=== PATIENT | female | born 1970 | race Caucasian/White ===

== ENCOUNTER 2020-09-25 16:15 | Outpatient (CLI) | payer OTHER, SELFPAY ==
--- NOTE | ~2020-09-25 | XR_ITS ---
EXAMINATION: XR tibia fibula LT 2V, XR foot LT min 3V, XR ankle LT min 3V DATE: 09/25/2020 16:54 INDICATION: 5 days of left lower leg, foot and ankle pain. TECHNIQUE: 1. Anteroposterior and lateral views of the left tibia and fibula were obtained. 2. Anteroposterior, mortise, oblique and lateral views of the left ankle were obtained. 3. Dorsal plantar, lateral and 2 oblique views of the left foot were obtained. COMPARISON: None. FINDINGS: Alignment is normal at the left lower leg, foot and ankle. No fracture. Joint spaces are normal with no evident osteophytosis or erosions. No periosteal reaction or suspicious lytic or blastic bone lesi ons. Focal soft tissue swelling lateral to the head of the left fifth metatarsal, potentially a bunio jian. Soft tissues are otherwise unremarkable with no left ankle joint effusion. IMPRESSION: 1. No osseous abnormality at the left lower leg, foot or ankle. Reviewed, dictated and finalized at location A. ICAL STUDIES SPECIALIST IMPRESSION: 1. No osseous abnormality at the left lower leg, foot or ankle. IMPRESSION: 1. No osseous abnormality at the left lower leg, foot or ankle.
== END 2020-09-25 16:16 | disposition home or self-care (01) ==
PROVIDERS: PCP Family Medicine; Visit Provider Family Medicine
DX: M79.605 Pain in left leg (principal)
CPT/HCPCS: 73590; 73610; 73630

== ENCOUNTER 2021-02-19 09:57 | Emergency (ER) | payer OTHER, SELFPAY ==
--- NOTE | ~2021-02-19 | XR_ITS ---
XR shoulder RT min 2V, XR humerus RT 02/19/2021 11:57 Indication: Right arm and shoulder pain with limited range of motion Procedure: 4 views right shoulder and 2 views right humerus Comparison: No prior studies for comparison. Findings: No fracture, subluxation or dislocation. There is anatomic alignment. No soft tissue abnorm ality. No foreign bodies. There is mild osteoarthritis of the acromioclavicular joint with inferior o steophyte formation. Impression: 1: Mild osteoarthritis of the acromioclavicular joint. Reviewed, dictated and finalized at location B. Impression: 1: Mild osteoarthritis of the acromioclavicular joint. Impression: 1: Mild osteoarthritis of the acromioclavicular joint.
[2021-02-19 10:43] VITALS: BP 167/78; PULSE 92; RESP 12; TEMP 36.7; O2SAT 100
--- NOTE | 2021-02-19 11:47 | ED.UPPEXIN ---
HPI - Extremity Injury (Upper) General Chief Complaint: Extremity Injury, Upper Stated Complaint: right arm pain Time Seen by Provider: 02/19/21 11:06 Source: patient Mode of arrival: ambulatory Limitations: no limitations History of Present Illness HPI narrative: This is a 50-year-old female that presents to the emergency department for right shoulder pain x3 days. No known certain injury or trauma. Reports she has been lifting weights in the gym again recently. Pain is on the lateral aspect of the shoulder. It is hard for her to lift her arm due to pain. She took Lorton last night with some relief of the pain. Denies fever, erythema, edema, or numbness. Related Data Home Medications Medication Instructions Recorded Confirmed rosuvastatin mg 02/19/21 Allergies Allergy/AdvReac Type Severity Reaction Status Date / Time BANDAID AdvReac Unknown Rash Uncoded 02/19/21 11:07 Review of Systems Review of Systems: Narrative: CONSTITUTIONAL: Denies fever SKIN: Denies rash MUSCULOSKELETAL: Reports joint pain, and myalgia. NEUROLOGIC: Denies numbness, or weakness. All systems reviewed & are unremarkable except as noted in HPI and below PMFSH Past Medical History Medical History (Updated 02/19/21 @ 13:13 by Amada Piña PA-C) History of hyperlipidemia Social History Social History (Updated 02/19/21 @ 11:50 by Amada Piña PA-C) Substance use: never Exam Narrative: Exam Narrative: GENERAL: Well-appearing, well-nourished, and in no acute distress. HEAD: Normocephalic, atraumatic. EYES: EOMI. CHEST: Clear to auscultation. No respiratory distress. No wheezes rales or rhonchi HEART: Regular rate and rhythm. No murmur heard. Normal peripheral pulses. EXTREMITIES: Decreased active ROM in the right shoulder above 90 degrees. No edema, erythema or warmth. Normal DP pulses. Normal sensation. Pain with Morse Jr test SKIN: Warm, dry, no rash. NEURO: No focal deficits. Alert and oriented x3. PSYCH: Normal mood and affect Course Vital Signs Vital signs: Vital Signs Temperature 98.1 F 02/19/21 10:43 Pulse Rate 92 02/19/21 10:43 Respiratory Rate 12 02/19/21 10:43 Blood Pressure 167/78 H 02/19/21 10:43 Pulse Oximetry 100 02/19/21 10:43 Temperature 98.1 F 02/19/21 10:43 Pulse Rate 92 02/19/21 10:43 Respiratory Rate 12 02/19/21 10:43 Blood Pressure 167/78 H 02/19/21 10:43 Pulse Oximetry 100 02/19/21 10:43 MDM - Extremity Injury (Upper) MDM Narrative Medical decision making narrative: Patient presents the emergency department for right shoulder pain x3 days. No known injury or trauma. She has neurovascularly intact. Right shoulder and humerus x-rays are without acute osseous abnormalities. Shows mild osteoarthritis of the AC joint. Patient was updated on case findings. Instructed to rest, ice and take [id number] pain medication as needed. She is to follow-up with orthopedics. She was given warnings to return to the ER Imaging Data Radiologist's impression: ITS Impressions Humerus X-Ray 02/19/21 11:58 Impression: 1: Mild osteoarthritis of the acromioclavicular joint. Shoulder X-Ray 02/19/21 11:58 Impression: 1: Mild osteoarthritis of the acromioclavicular joint. Critical Care Time Critical Care Time Critical Care Time: No Discharge Plan Discharge Clinical Impression: Acute pain of right shoulder Patient Disposition: Home, Self-Care Condition: Stable Instructions: Shoulder Pain (ED) Additional Instructions: Return to the emergency department if you experience fever, redness and swelling of your arm, numbness, or any other symptoms that are concerning to you Rest. Ice to the area. Tylenol or anti-inflammatories as needed for pain. You may wear sling for comfort, do be sure to come out of the sling and do range of motion exercises so you did not stiff Follow-up with orthopedics Prescriptions: No Action
[2021-02-19] MEDS: IBUPROFEN 600 MG TABLET PO (12:03)
[2021-02-19 13:29] VITALS: BP 117/75; PULSE 67; RESP 16; O2SAT 99
== END 2021-02-19 13:32 | disposition home or self-care (01) ==
PROVIDERS: Emergency Provider Emergency Medicine; PCP Family Medicine
DX: M25.511 Pain in right shoulder (principal); E78.5 Hyperlipidemia, unspecified; M19.011 Primary osteoarthritis, right shoulder
CPT/HCPCS: 73030; 73060; 99283; A9270

== ENCOUNTER 2021-03-11 15:24 | Observation (INO) | payer OTHER, SELFPAY ==
[2021-03-11] VITALS (7 sets, daily range): BP systolic 96–141; BP diastolic 72–107; PULSE 80–110; RESP 16–20; TEMP 36.6–37.3; O2SAT 96–99; BMI 24.0
--- NOTE | 2021-03-11 | ECG_ITS ---
Measurements Intervals [place] Rate: 93 P: 65 OR: 146 QRS: -32 QRSD: 86 T: 8 QT: 387 QTc: 482 Interpretive Statements SINUS RHYTHM LEFT AXIS DEVIATION BORDERLINE ST-T WAVE ABNORMALITY- ANT/INF LEADS BORDERLINE ECG Electronically Signed On 03-11-2021 16:03:45 CDT by Brant Robertson D.O.
--- NOTE | ~2021-03-11 | CT_ITS ---
EXAMINATION: CT abdomen pelvis w con EXAM DATE: 03/11/2021 17:16 INDICATION: Upper abdominal pain, hematemesis. Upper abdominal pain, hematemesis. Epigastric pain. Na usea and vomiting. TECHNIQUE: Spiral CT of the abdomen and pelvis was performed following intravenous injection of 100 m L Omnipaque 350. Axial, coronal and sagittal images of the abdomen and pelvis were reviewed. The do se-length product (DLP) for this examination was 371.70 mGy-cm. The exposure was tailored according to patient size (auto mA exposure control), and iterative reconstruction (ASIR) was used as additiona l dose reduction technique. There is no prior study for comparison. FINDINGS: The liver, spleen, adrenal glands and pancreas are unremarkable. Gallbladder is unremarkab le. No biliary obstruction. Portal and splenic veins are patent. Kidneys enhance symmetrically. T here is no hydronephrosis. The uterus is not identified and has likely been surgically resected. T he bladder is unremarkable. There is no retroperitoneal or pelvic lymphadenopathy. The 2nd and 3rd portion of the duodenum appears to have thickened low density wall, most likely edema (axial images 70-90). Could be peptic ulcer disease but no discrete ulcerations identified. The appe ndix is normal. There is expected amount of colonic stool. No free intraperitoneal gas. The he art is normal in size. There are no pericardial or pleural effusions. The lung bases are unremarkab le. The bones are unremarkable. IMPRESSION: Edematous appearing duodenum, could be peptic ulcer disease. Clinical correlation. Reviewed, dictated and finalized at location A. IMPRESSION: Edematous appearing duodenum, could be peptic ulcer disease. Clinic al correlation.
--- NOTE | 2021-03-11 15:34 | ED.ABDPAIN ---
HPI - Abdominal Pain General Chief Complaint: Abdominal Pain Stated Complaint: ABD PAIN Source: patient and RN notes reviewed Mode of arrival: EMS Limitations: no limitations History of Present Illness HPI narrative: This is a 50 year old female who presents for evaluation of nausea and vomiting. She states approximately 1 hour ago she developed sudden onset nausea and vomiting. She reports she felt well before this sudden emesis. She had 2 more episodes of emesis. She reports her second episode was bilious and her third episode of emesis was bright red blood. She developed epigastric pain after her episodes of vomiting, but her pain has now subsided. She denies diarrhea or melena. SHe states 2 months ago she had vomiting and diarrhea that last for 1 week but she thought it was due to stomach bug . She also reports 1 week ago she had an episode of emesis after eating and drinking but she felt fine immediately after. She denies history ulcer. She also denies frequent alcohol or NSAID use. Related Data Home Medications Medication Instructions Recorded Confirmed No Home Medications 03/11/21 Allergies Allergy/AdvReac Type Severity Reaction Status Date / Time No Known Allergies Allergy Verified 03/11/21 15:15 Review of Systems Review of Systems: All systems reviewed & are unremarkable except as noted in HPI and below PMFSH Past Medical History Medical History (Updated 03/11/21 @ 20:50 by Kelsey Marinelli MD) Fever High cholesterol History of hyperlipidemia Right rotator cuff tear Vision changes Vomiting Surgical History Surgical History (Updated 03/11/21 @ 15:35 by Kelsey Marinelli MD) History of partial hysterectomy Family History Family History (Updated 02/21/21 @ 11:24 by Marta Padilla RT(R)) Other High cholesterol Social History Social History (Updated 02/21/21 @ 11:24 by Marta Padilla RT(R)) Smoking status: Never smoker Second hand tobacco smoke exposure: No Alcohol intake: current Drinks per week: 3 Substance use: never Substance use type: does not use Gender identity (if verbalized by the patient): Female Spiritual care concerns: No Exam Const: General: no acute distress and alert Orientation/consciousness: patient oriented x3 Eyes: EOM: EOMs intact bilaterally Chest: Chest palpation & inspection: normal inspection of the chest Resp: Effort & Inspection: normal respiratory effort and no retractions Auscultation: clear to auscultation bilaterally Cardio: Rate: regular rate Rhythm: regular rhythm Heart sounds: no murmurs GI: GI Palp: Yes Soft to palpation, No Tenderness to palpation present (GI) and No Guarding due to palpation present (GI) Auscultation: normal bowel sounds Rectal Exam: normal sphincter tone Other: guaic negative Skin: General skin exam: normal color Rashes: no rashes Neuro: General: patient oriented x3, moves all extremities and CN's II-XI intact bilaterally Psych: Mental Status: mental status grossly normal Affect: normal affect Course Reevaluation(s) Reevaluation #1: I discussed with patient CT report showing duodenum abnormality and possible PUD. She is guaic negative. She reports she feels better. Will order serial H/H and she has been given protonix. Date: 03/11/21 Time: 17:30 Consultations Consultation #1: I discussed case with Tere hermosillo about case and she accepts patient to hospitalist service for evaluation of Upper GI bleeding, PUD Date: 03/11/21 Time: 17:54 Consultation #2: I spoke with Dr. Ng who agrees to consult. REquest patient consent for EGD tomorrow. Date: 03/11/21 Time: 18:05 Vital Signs Vital signs: Vital Signs Temperature 99.2 F 03/11/21 15:05 Pulse Rate 110 H 03/11/21 15:05 Respiratory Rate 20 03/11/21 15:05 Blood Pressure 96/72 L 03/11/21 15:05 Pulse Oximetry 98 03/11/21 15:05 Temperature 99.2 F 03/11/21 15:05 Pulse Rate 81 03/11
[2021-03-11 15:43] LABS: Basophils Absolute Auto 0.1 K/mm3 (0.0-0.1); Basophils Percent Auto 0.4 % (0.2-1.2); Eosinophils Absolute Auto 0.1 K/mm3 (0-0.3); Eosinophils Percent Auto 0.4 % (0-4.4); Hematocrit 43.6 % (37.0-47.0); Hemoglobin 14.6 g/dL (12.0-15.0); Immature Granulocyte Absolute 0.14 K/mm3 (0.00-0.031); Immature Granulocyte Percent A 0.6 % (0-0.5); Immature Platelet Fraction Pct 8.7 % (0.9-11.2); Lymphocytes Absolute Auto 1.65 K/mm3 (0.9-3.2); Lymphocytes Percent Auto 7.3 % (18.3-44.2); Mean Corpuscular HGB Conc 33.5 g/dl (32-36); Mean Corpuscular Hemoglobin 31.5 pg (26-34); Mean Platelet Volume 12.5 fl (7.4-10.4); Monocytes Absolute Auto 0.9 K/mm3 (0.1-0.6); Monocytes Percent Auto 3.8 % (2.6-8.5); Neutrophils Absolute Auto 19.7 K/mm3 (1.3-6.7); Neutrophils Percent Auto 87.5 % (45.5-73.1); Platelet Count Result 189 k/mm3 (150-375); Red Blood Count 4.64 M/mm3 (4.2-5.4); Red Cell Distribution Width 12.7 % (11.5-14.5); White Blood Count 22.6 K/mm3 (4.5-10.0)
[2021-03-11] MEDS: LACTATED RINGERS 1,000 ML 999 ML IV CONT (16:00)
[2021-03-11] MEDS: PANTOPRAZOLE SODIUM IV 40 MG VIAL IV PUSH ×2 (16:01→20:45)
[2021-03-11 16:38] LABS: Partial Thromboplastin Time 24.9 SECONDS (22.3-36.8); Prothrombin Time 13.4 Seconds (11.1-14.7)
[2021-03-11 16:41] LABS: Add Urine Microscopic? YES; Appearance Urine Clear (Clear); Bacteria Urine Trace /hpf; Bilirubin Urine Negative (Negative); Blood Urine 1+ (Negative); Color Urine Yellow (Yellow); Glucose Urine UA Negative (Negative); Ketones Urine Trace mg/dL (Negative); Leukocyte Esterase Ur Negative LEU/UL (Negative); Mucus Urine Rare /lpf; Nitrate Urine Negative (Negative); Protein Urine 1+ mg/dL (Negative); Specific Grav Ur 1.017 (1.001-1.035); Urobilinogen Urine Negative mg/dL (<2.0); WBC Urine 0-3 /hpf
[2021-03-11 16:43] LABS: Lactic Acid Reflex 1.5 mmol/L (0.7-2.1)
[2021-03-11 16:48] LABS: Alanine Aminotransferase 25 U/L (4-35); Albumin Level 4.9 g/dL (3.5-5.1); Alkaline Phosphatase 71 U/L (38-126); Anion Gap 12 mmol/L (8-16); Aspartate Amino Transferase 32 U/L (14-36); Bilirubin,Total 0.4 mg/dL (0.2-1.3); Blood Urea Nitrogen 15 mg/dL (7-17); Calcium 9.7 mg/dL (8.4-10.2); Carbon Dioxide 25 mmol/L (22-30); Chloride 103 mmol/L (98-107); Estimated CRCL calculation 79 ml/min; Estimated Glomerular Filt Rate > 60; Glucose 92 mg/dL (65-105); Lipase 98 U/L (23-300); Potassium 3.4 mmol/L (3.4-5.0); Sodium 140 mmol/L (137-145)
--- NOTE | 2021-03-11 20:14 | ADMGEN ---
This patient, Maye Lyn, was admitted to [facility] Surg Room 301-01. Patient/family oriented to hospital policies and general routines including ID bracelet, bed and alarms, visiting hours, pain management, procedures, bathroom and other care routines, personal items, smoking policy, room service/diet, and visiting hours. Information on how to activate the Rapid Response Team has been discussed. Patient/Family are encouraged to report perceived risks to care and to ask questions if they do not understand what they are told or what they should do.
[2021-03-11 20:27] LABS: Hematocrit 43.4 % (37.0-47.0); Hemoglobin 14.6 g/dL (12.0-15.0)
[2021-03-11] MEDS: SODIUM CHLORIDE 0.9% IV 1,000 ML 125 ML IV CONT (20:40)
[2021-03-12] VITALS (7 sets, daily range): BP systolic 110–129; BP diastolic 65–86; PULSE 50–78; RESP 12–22; TEMP 36.1–36.9; O2SAT 99–100
[2021-03-12 01:53] LABS: Hemoglobin 12.6 g/dL (12.0-15.0)
[2021-03-12] MEDS: SODIUM CHLORIDE 0.9% IV 1,000 ML 125 ML IV CONT (04:46)
[2021-03-12 06:31] LABS: Hematocrit 38.9 % (37.0-47.0); Hemoglobin 12.8 g/dL (12.0-15.0)
--- NOTE | 2021-03-12 06:42 | PM.IMHP ---
H&P: HPI History of Present Illness Date/Time: 03/12/21 06:42 Chief Complaint: Epigastric pain, nausea and vomiting Narrative: 50-year-old female with a past medical history of familial hyperlipidemia who presented to the ER due to epigastric pain nausea and vomiting. The patient reports that about 2 months ago she had nausea and vomiting for several days. It was then followed by several days of diarrhea. Her total of symptoms lasted about a week and she thought it was due to a stomach bug as her children became ill about custodial through her ill process. She then had a recurrence of symptoms about 1 week ago where she had an episode of emesis after eating and drinking. She reported that she immediately felt better after the emesis. She denied any epigastric pain at that time. Her symptoms seemed self limited. However approximately 1 hour prior to presentation on the the patient developed sudden onset of nausea and vomiting. She had approximately 4 episodes of emesis with her last emesis containing gross blood. She reported that it was less than a quarter of a cup of blood. It seemed to be an isolated amount of blood but was not a clot. She reports that she felt well before all sudden onset of emesis. her emesis initially consisted of gastric contents. Her following couple of emesis were yellow to light green In color prior to hematemesis. She had some severe epigastric abdominal pain at the time of her last episode of emesis. Her abdomen still feels slightly tender in the epigastric region. She reported that her emesis today was after eating some David crackers. Her emesis was preceded by a sensation of nausea and she thought the eating some g carb occurs would help her symptoms. She denies any recent NSAID use. She has not had any recent alcohol use. She denies any hematochezia or melena. She has never had EGD or colonoscopy. She denies any known history of ulcer disease or GERD. she reports a sensation of fullness in her right ear non it improved with [id number] Flonase. she has not had any significant hearing loss. A few weeks ago after her 1st onset of symptoms she thought that maybe she was feeling ill because she was out of shape. She started working out. She subsequently developed some right shoulder pain radiating down into her right upper arm. She is evaluated by Dr. Turner On 02/21/2021who thought the patient may have a rotator cuff tear and referred her for an MRI. She has not followed up to have the MRI performed. the patient felt her symptoms may instead be due to statin use so she stopped her statin therapy. A few days later her shoulder symptoms improved. Her shoulder does not feel back to normal. Review of Systems Review of Systems: Narrative: 12 systems were reviewed with pertinent positives and negatives per HPI. Except as documented in the HPI, all other systems were reviewed and are negative. [facility] Past Medical History Medical History (Updated 03/12/21 @ 09:07 by Enedina Finley DO) History of hyperlipidemia Right rotator cuff tear Vision changes Surgical History Surgical History (Updated 03/12/21 @ 09:00 by Enedina Finley DO) History of partial hysterectomy (~2015) Hysterectomy without oophorectomy due to dysfunctional uterine bleeding. 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 She reports that her 3rd oldest daughter is going to move out this week. She is a lifelong nonsmoker. She drinks A few alcoholic beverage a week. She denies any tobacco use or illicit substance use. She is a homemaker. Primary care physician: Dr. Kristen Mejia Code status: Aby
[2021-03-12 07:06] LABS: Hematocrit 38.7 % (37.0-47.0); Hemoglobin 12.9 g/dL (12.0-15.0); Mean Corpuscular HGB Conc 33.3 g/dl (32-36); Mean Corpuscular Hemoglobin 31.9 pg (26-34); Mean Corpuscular Volume 95.6 fl (80-100); Mean Platelet Volume 12.1 fl (7.4-10.4); Platelet Count Result 168 k/mm3 (150-375); Red Blood Count 4.05 M/mm3 (4.2-5.4); Red Cell Distribution Width 12.9 % (11.5-14.5); White Blood Count 8.7 K/mm3 (4.5-10.0)
[2021-03-12 07:18] LABS: Anion Gap 7 mmol/L (8-16); Blood Urea Nitrogen 12 mg/dL (7-17); Calcium 8.3 mg/dL (8.4-10.2); Carbon Dioxide 21 mmol/L (22-30); Chloride 110 mmol/L (98-107); Estimated CRCL calculation 107 ml/min; Estimated Glomerular Filt Rate > 60; Glucose 88 mg/dL (65-105); Potassium 3.5 mmol/L (3.4-5.0); Sodium 138 mmol/L (137-145)
[2021-03-12] MEDS: PANTOPRAZOLE SODIUM IV 40 MG VIAL IV PUSH (09:24)
[2021-03-12] MEDS: LACTATED RINGERS 1,000 ML 150 ML IV CONT (11:11)
--- NOTE | 2021-03-12 11:25 | WPDGICN ---
Assessment and Plan Assessment and plan (1) Hematemesis: Qualifiers: Nausea presence: with nausea Qualified Code(s): K92.0 - Hematemesis Code(s): K92.0 - Hematemesis Status: Acute Assessment and Plan: Patient has had vomiting episode along with subsequent hematemesis. History is very suggestive of Lara-Mckeon tear. CT scan suggest possibility of peptic ulcer disease and duodenal ulcer. Hemoglobin has remained essentially normal. Plan is for PPI therapy. An EGD will be performed to assess for source of bleeding and anticipated therapy long-term. Further recommendations will be given after EGD. Hemoglobin remains stable at this point. (2) Abnormal CT scan: Code(s): R93.89 - Abnormal findings on diagnostic imaging of other specified body structures Status: Acute Assessment and Plan: CT scan suggest thickening along the duodenal area. This potential for peptic ulcer disease. Plan to assess the time of EGD. Patient will be maintained on PPI therapy for now. GI Consult Note Consult date/time: 03/12/21 11:25 HPI: Maye Lyn is a 50 year old female reports vomiting episode 2 months ago. This was associated with mild diarrhea. This subsequently resolved. Yesterday began to vomit rather significantly initially with bile in them with bloody emesis. Patient presented to the emergency room. A CT scan was performed. CT scan suggested a thick duodenum possible ulcer disease in this area. Patient has had no bleeding since that time. She does have some mild epigastric discomfort. Her family history is noncontributory. Patient denies any weight loss. She has not had previous bleeding episodes. Patient's hemoglobin has remained stable overnight. Review of Systems Review of Systems: All systems reviewed & are unremarkable except as noted in HPI and below PMFSH Past Medical History Medical History (Updated 03/12/21 @ 11:27 by Solis Ng MD) History of hyperlipidemia Right rotator cuff tear Vision changes Surgical History Surgical History (Updated 03/12/21 @ 09:00 by Enedina Finley DO) History of partial hysterectomy (~2015) Hysterectomy without oophorectomy due to dysfunctional uterine bleeding. 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 She reports that her 3rd oldest daughter is going to move out this week. She is a lifelong nonsmoker. She drinks A few alcoholic beverage a week. She denies any tobacco use or illicit substance use. She is a homemaker. Primary care physician: Dr. Kristen Mejia Code status: Full code Surrogate decision maker: Smoking status: Never smoker Second hand tobacco smoke exposure: No Alcohol intake: current Drinks per week: 3 Substance use: never Substance use type: does not use Gender identity (if verbalized by the patient): Female Spiritual care concerns: No Meds Home Medications and Allergies Home Medications Medication Instructions Recorded Confirmed Type No Home Medications 03/11/21 03/12/21 History Allergies Allergy/AdvReac Type Severity Reaction Status Date / Time No Known Allergies Allergy Verified 03/12/21 10:55 Vital Signs Vital Signs - 24 hr 03/11/21 15:05 03/11/21 17:51 03/11/21 17:53 Temperature 99.2 F Pulse Rate 110 H 90 92 Respiratory Rate 20 Blood Pressure 96/72 L 141/88 H 140/90 Pulse Oximetry 98 03/11/21 17:54 03/11/21 18:15 03/11/21 19:22 Temperature Pulse Rate 100 89 81 Respiratory Rate 17 18 Blood Pressure 138/107 H 130/89 126/83 Pulse Oximetry 98 96 03/11/21 20:05 03/12/21 06:00 03/12/21 09:59
[2021-03-12 13:17] LABS: Hematocrit 36.8 % (37.0-47.0)
--- NOTE | 2021-03-12 16:14 | PM.DS ---
DS: Admitting Diagnosis Admitting Diagnosis Admitting Diagnosis: Hematemesis DS: Discharge Diagnosis Discharge Diagnosis (1) Gastritis: Code(s): K29.70 - Gastritis, unspecified, without bleeding Status: Acute Assessment and Plan: Evident on EGD performed by Dr. Ng on 03/12/2021. Likely related to NSAID use (had been using ibuprofen due to new onset shoulder pain). started on Protonix daily for 4 weeks. Avoid use of NSAIDs. Follow-up with PCP. (2) Hematemesis: Qualifiers: Nausea presence: with nausea Qualified Code(s): K92.0 - Hematemesis Code(s): K92.0 - Hematemesis Status: Acute Assessment and Plan: Presented with episode of hematemesis, likely related to gastritis evident on EGD. Hematemesis resolved entirely. H&H remained generally stable and she did not have any ongoing blood loss. She did wish to obtain repeat H&H in 1 week to ensure remaining stable, as she is already getting other blood work done. (3) Abnormal CT scan: Code(s): R93.89 - Abnormal findings on diagnostic imaging of other specified body structures Status: Acute Assessment and Plan: CT demonstrated thickened duodenal wall at 2nd and 3rd portion that looked similar to peptic ulcer disease. No evidence of peptic ulcer on EGD. Plan for gastritis as above. DS: Summary Hospital Course Hospital Course: Date of admission: 03/11/2021 date of discharge: 03/12/2021 Maye Lyn is a 50-year-old female with history of hyperlipidemia who presented to the emergency department on 03/11/2021 with complaints of vomiting. She had an episode of bilious emesis followed by emesis with bright red blood and associated epigastric pain. Upon presentation to the emergency department, she was mildly tachycardic with additional vital signs stable, hemoglobin 14.6, hematocrit 43.4, electrolytes within normal limits, lactic 1.5, CT abdomen/ pelvis showed edematous appearing duodenum. She was admitted to the hospitalist service for further evaluation and management was seen in consultation by Gastroenterology. Please see above for further details. She underwent EGD which demonstrated gastritis. Discussed importance of avoiding NSAIDs. She can take tylenol as needed for shoulder pain and follow up with her orthopedic doctor should symptoms persist. She began feeling much better and was eager for discharge home. She did request follow up H&H as she was already obtaining previously ordered blood work. Given her overall improvement, she was determined to no longer require inpatient care and was felt to be stable for discharge. we discussed worrisome signs and symptoms for which to return and she was educated on her medications. She was discharged in hemodynamically stable condition on 03/12/2021. Status at Discharge Functional status at discharge: independent ambulation Overall status at discharge: patient is progressing back to baseline Time Spent with Patient Time attestation: Total time spent providing and/or coordinating discharge services: 45 minutes Exam Narrative: Exam Narrative: Ms. Lyn is a well-nourished, well-appearing 50-year-old female who is sitting cross-legged in bed. She appears comfortable and is in NARD. Neuro: awake, alert and oriented x4, speech clear, no focal neuro deficits noted HEENMT: normocephalic, atraumatic, EOMI, sclerae anicteric, moist oral mucosa Neck: supple, no lymphadenopathy Respiratory: clear to auscultation bilaterally, nonlabored breathing Cardio: regular rate, regular rhythm with S1-S2 Abdomen: nondistended, normoactive bowel sounds, soft, nontender to palpation Extremities: no edema, erythema, or tenderness to palpation, DP pulses 2+ bilaterally Skin: no rashes or lesions, warm and dry Psych: appropriate mood and affect, judgment and insight intact DS: Data Data Completed and Pending Labs on day of discharge: Labs from last 24 hours 06
== END 2021-03-12 17:06 | disposition home or self-care (01) ==
LOC: ANHED 16:36 → ANH3MEDSUR 18:45
PROVIDERS: Emergency Medicine; Internal Medicine; Internal Medicine Gastroenterology; Admitting Provider Internal Medicine; Emergency Provider General Practice; PCP Family Medicine; Visit Provider Physician Assistant
PROC: 0DJ08ZZ Inspection of Upper Intestinal Tract, Via Natural or Artificial Opening Endoscopic (ICD-10-PCS; CPT 43235; principal; 2021-03-12 12:00)
DX: K29.00 Acute gastritis without bleeding (principal); R10.13 Epigastric pain; E78.5 Hyperlipidemia, unspecified; R93.89 Abnormal findings on diagnostic imaging of other specified body structures
CPT/HCPCS: 43239; 36415; 74177; 80048; 80053; 81001; 83605; 83690; 85014; 85018; 85025; 85027; 85055; 85610; 85730; 87081; 93005; 96361; 96374; 96375; 99285; C9113; G0378; G0379; J2704; J7030; J7120; Q9967